=== PATIENT | female | born 1985 | race Caucasian/White ===

== ENCOUNTER 2016-09-27 22:53 | Emergency (ER) | payer OTHER ==
[2016-09-27 23:19] LABS: % IMMATURE GRANULYOCYTES 0.3 % (0.0-1.1); ABSOLUTE IMMATURE GRANULOCYTES 0.02 10^3/uL (0.00-0.10); ADD DIFF? NO; ADD MORPH? NO; ADD SCAN? NO; ATYPICAL LYMPHOCYTE FLAG 20 (0-99); FRAGMENT RBC FLAG 0 (0-99); HEMATOCRIT 39.2 % (38.0-47.0); HEMOGLOBIN 13.4 g/dL (12.6-16.3); LEFT SHIFT FLG 0 (0-99); LIPEMIA HEMOLYSIS FLAG 90 (0-99); MEAN CELL HEMOGLOBIN 33.3 pg (27.9-34.1); MEAN CELL HEMOGLOBIN CONCENTR. 34.2 g/dL (32.4-36.7); MEAN CELL VOLUME 97.3 fL (81.5-99.8); MEAN PLATELET VOLUME 10.2 fL (8.7-11.7); PLATELET CLUMPS FLAG 10 (0-99); PLATELET COUNT 191 10^3/uL (150-400); RED BLOOD CELL COUNT 4.03 10^6/uL (4.18-5.33)
--- NOTE | 2016-09-27 23:26 | EDPHY ---
H & P Stated Complaint: RLQ abd pain Time Seen by Provider: 09/27/16 23:05 HPI/ROS: Chief Complaint: Abdominal pain HPI: 31-year-old woman presenting with 2 days of right lower abdominal pain. Patient states that began Kyle night in her right lower abdomen. It is a moderate dull 4/10 pain. Is always in the same spot. Has not had any nausea, vomiting or diarrhea. No history of same. Does have a history of polycystic ovary disease but she has never had pain from this in the past. No fevers or chills. There are no aggravating or alleviating factors. Is not worsened with walking with bumps. Patient states that it feels like a general discomfort in her lower abdomen primary our and the right side. No surgeries in the past. No urinary for symptoms. Last menstrual. Was 1 month ago, she is normally irregular secondary to her PCOS. ROS: 10 point Review of Systems is negative except as noted in the HPI. PMH: PCOS Social History: No smoking, no alcohol, no recreational drug use Family History: non-contributory Physical Exam: Gen: Awake, Alert, No Distress HEENT: Nose: no rhinorrhea Eyes: PERRLA, EOMI Mouth: Moist mucosa Neck: Supple, no JVD Chest: nontender, lungs clear to auscultation Heart: S1, S2 normal, no murmur Abd: Soft, very mild right adnexal tenderness, no tenderness at McBurney's point , no guarding Back: no CVA tenderness, no midline tenderness Ext: no edema, non-tender Skin: no rash Neuro: CN II-XII intact, Sensation grossly intact, Strength 5/5 in bilateral upper and lower extremities - Personal History LMP (Females 10-55): 15-21 Days Ago Current Tetanus/Diphtheria Vaccine: Unsure Current Tetanus Diphtheria and Acellular Pertussis (TDAP): Unsure - Medical/Surgical History Hx Asthma: No Hx Chronic Respiratory Disease: No Hx Diabetes: No Hx Cardiac Disease: No Hx Renal Disease: No Hx Cirrhosis: No Hx Alcoholism: No Hx HIV/AIDS: No Hx Splenectomy or Spleen Trauma: No Other PMH: polycystic ovarian disease, - Social History Smoking Status: Current some day smoker Constitutional: Initial Vital Signs Temperature (C) 36.6 C 09/27/16 22:57 Heart Rate 74 09/27/16 22:57 Respiratory Rate 16 05/14/17 22:57 Blood Pressure 136/76 H 09/27/16 22:57 O2 Sat (%) 98 09/27/16 22:57 O2 Delivery Mode Room Air Allergies/Adverse Reactions: No Known Allergies Allergy (Unverified 09/27/16 22:57) Home Medications: Medication Instructions Recorded Xanax 09/27/16 Medical Decision Making - Diagnostics Imaging Results: Imaging Impressions Abdomen Ultrasound 09/27/16 23:25 Impression: Indeterminate study for appendicitis as a normal nor an abnormal appendix is visualized. Results called and discussed with Jem Longo MD at 09/28/2016 0:10. Pelvic/Renal Ultrasound 09/27/16 23:25 Impression: Normal pelvic ultrasound. Results called and discussed with Jem Longo MD at 09/28/2016 0:07. Imaging: Discussed imaging studies w/ call center professional Radiologist ED Course/Re-evaluation: Blood work is normal. She has no leukocytosis. Repeat examination has a soft completely benign abdomen with no reproducible tenderness whatsoever. I have discussed the fact that we are not able to see her appendix on ultrasound but there are no secondary findings suggestive of appendicitis. Her white count is normal. Patient states she is going to [facility] in 2 days. I have told her that is be concerning for her to have an appendicitis when [facility] in the only definitive way of determining this is a get a CT scan. Patient states she does not want a CT scan at this time. I have told her that if she has any pain or discomfort is not feeling entirely normal tomorrow that she should return for a CT scan to evaluate her appendix. She does not want to be in [facility] with a developing acute appendicitis. Patient states that she will certainly return if she is not feeling better or if she worsens. She assures me she will return if she is not feeling in her normal state of health. She understands the risks involved and the extreme changes of her having a surgical process when she is overseas. - Data Points Laboratory Results: Laboratory Results 09/27/16 23:10 09/27/16 23:10 09/27/16 09/27/16 09/27/16 23:10 23:10 23:10 WBC 7.67 10^3/uL 10^3/uL (3.80-9.50) RBC 4.03 10^6/uL L 10^6/uL (4.18-5.33) Hgb 13.4 g/dL g/dL (12.6-16.3) Hct 39.2 % % (38.0-47.0) MCV 97.3 fL fL (81.5-99.8) MCH 33.3 pg pg (27.9-34.1) MCHC 34.2 g/dL g/dL (32.4-36.7) RDW 12.0 % % (11.5-15.2) Plt Count 191 10^3/uL 10^3/uL (150-400) MPV 10.2 fL fL (8.7-11.7) Neut % (Auto) 49.6 % % (39.3-74.2) Lymph % (Auto) 42.6 % % (15.0-45.0) [place] % (Auto) 5.5 % % (4.5-13.0) Eos % (Auto) 1.3 % % (0.6-7.6) Baso % (Auto) 0.7 % % (0.3-1.7) Nucleat RBC Rel Count 0.0 % % (0.0-0.2) Absolute Neuts (auto) 3.81 10^3/uL 10^3/uL (1.70-6.50) Absolute Lymphs (auto) 3.27 10^3/uL H 10^3/uL (1.00-3.00) Absolute Monos (auto) 0.42 10^3/uL 10^3/uL (0.30-0.80) Absolute Eos (auto) 0.10 10^3/uL 10^3/uL (0.03-0.40) Absolute Basos (auto) 0.05 10^3/uL 10^3/uL (0.02-0.10) Absolute Nucleated RBC 0.00 10^3/uL 10^3/uL (0-0.01) Immature Gran % 0.3 % % (0.0-1.1) Immature Gran # 0.02 10^3/uL 10^3/uL (0.00-0.10) Sodium 139 mEq/L mEq/L (134-144) Potassium 3.7 mEq/L mEq/L (3.5-5.2) Chloride 96 mEq/L L mEq/L (97-110) Carbon Dioxide 28 mEq/l mEq/l (22-31) Anion Gap 15 mEq/L mEq/L (8-16) BUN 8 mg/dL mg/dL (7-23) Creatinine 0.8 mg/dL mg/dL (0.6-1.0) Estimated GFR > 60 Glucose 108 mg/dL H mg/dL (70-100) Calcium 10.2 mg/dL mg/dL (8.5-10.4) Beta HCG, Qual NEGATIVE Departure - Departure Disposition: Home, Routine, Self-Care Clinical Impression: Abdominal pain Condition: Good Instructions: Acute Abdominal Pain (ED) Additional Instructions: If your pain is not completely gone tomorrow return to the emergency department for re-evaluation and possible CT scan. Referrals: NONE *PRIMARY CARE P,. [Primary Care Provider] - As per Instructions Kristina Armenta MD [Medical Doctor] - As per Instructions
[2016-09-27 23:33] LABS: ANION GAP 15 mEq/L (8-16); CALCIUM 10.2 mg/dL (8.5-10.4); CARBON DIOXIDE 28 mEq/l (22-31); CHLORIDE 96 mEq/L (97-110); CREATININE 0.8 mg/dL (0.6-1.0); GLOMERULAR FILTRATION RATE > 60; GLUCOSE 108 mg/dL (70-100); POTASSIUM 3.7 mEq/L (3.5-5.2); SODIUM 139 mEq/L (134-144)
[2016-09-28 00:44] VITALS: BP 104/60; PULSE 58; RESP 14; TEMP 97.5; O2SAT 97
== END 2016-09-28 00:51 | disposition home or self-care (01) ==
DX: R10.31 Right lower quadrant pain (principal); F17.200 Nicotine dependence, unspecified, uncomplicated

== ENCOUNTER 2017-04-09 16:09 | Emergency (ER) | payer OTHER ==
[2017-04-09 16:25] VITALS: RESP 16
[2017-04-09] MEDS ORDERED: NS 1,000 ML IV ONE (16:36)
--- NOTE | 2017-04-09 16:36 | EDPHY ---
H & P Stated Complaint: Abdo pain starting while in [place], thinks she may have drunk contaminated Source: Patient Exam Limitations: No limitations - Personal History LMP (Females 10-55): 22-28 Days Ago Current Tetanus Diphtheria and Acellular Pertussis (TDAP): Yes - Medical/Surgical History Hx Asthma: No Hx Chronic Respiratory Disease: No Hx Diabetes: No Hx Cardiac Disease: No Hx Renal Disease: No Hx Cirrhosis: No Hx Alcoholism: No Hx HIV/AIDS: No Hx Splenectomy or Spleen Trauma: No Other PMH: polycystic ovarian disease, - Social History Smoking Status: Former smoker Time Seen by Provider: 04/09/17 16:36 HPI/ROS: HPI: This is a 32-year-old female who presents with Chief Complaint: Abdo pain starting while in [place], thinks she may have drunk contaminated Location: GI Quality: Crampy Duration: 6 days Signs and Symptoms: no fever, no nausea, no vomiting, no hematemesis, no blood in stool, + abdominal bloating, + diarrhea, no back pain, no urinary symptoms, no vaginal bleeding, no vaginal discharge, no indigestion, no chest pain, no shortness of breath Timing: Sudden Severity: [id number] Context: History polycystic ovarian syndrome presents with abdominal bloating and loose stools for 3-4 days while in [facility]. She drink tap or that she shot was filter but later found out that it was not within 12 hours started to experience abdominal cramping, abdominal bloating, and loose stools that lasted 3-4 days. She denies blood in her stool or hematemesis. She reports that she was feeling better for the last 5 days but then yesterday she started to experience abdominal cramping, abdominal bloating again. She denies actual pain and the cramps were generalized in nature. Last menstrual period was 3 weeks ago. Denies vaginal discharge, vaginal bleeding. No recent antibiotic use. Trying to drink fluids. Modifying Factors: Comment: ROS: see HPI Constitutional: No fever, no chills, no weight loss Eyes: No blurred vision Respiratory: No shortness of breath, no cough Cardiovascular: No chest pain, no palpitations Gastrointestinal: No nausea, no vomiting, no diarrhea, no hematemesis, no blood in stool Genitourinary: No dysuria, no blood in urine Extremities: No myalgias, no edema Neurologic: No weakness, no numbness Skin: No rashes, no petechiae Hematologic: No bruising, no bleeding MEDICAL/SURGICAL/SOCIAL HISTORY: Medical history: Polycystic ovarian syndrome Surgical history: Denies Social history: Employed CONSTITUTIONAL: Extremely well-appearing, nontoxic in appearance adult female, awake and alert, no obvious distress HEENT: Atraumatic and normocephalic, PERRL, EOMI. Tympanic membranes clear. Oropharynx clear, no exudate and moist pink mucosa. Airway patent. No lymphadenopathy. No meningismus. Cardiovascular: Normal S1/S2, regular rate, regular rhythm, without murmur rub or gallop. PULMONARY/CHEST: Symmetrical and nontender. Clear to auscultation bilaterally. Good air movement. No accessory muscle usage. ABDOMEN: Soft, nondistended, nontender, no rebound, no guarding, no peritoneal signs, no masses or organomegaly. No CVAT. EXTREMITIES: 2/2 pulses, strength 5/5, no deformities, no clubbing, no cyanosis or edema. NEUROLOGICAL: no focal neuro deficits. GCS 15. SKIN: Warm and dry, no erythema. no rash. Good capillary refill. (Sara Montgomery) Constitutional: Initial Vital Signs Temperature (C) 37 C 04/09/17 16:21 Heart Rate 59 L 04/09/17 16:21 Respiratory Rate 16 04/09/17 16:21 Blood Pressure 111/57 L 04/09/17 16:21 O2 Sat (%) 96 04/09/17 16:21 O2 Delivery Mode Room Air Allergies/Adverse Reactions: No Known Allergies Allergy (Unverified 09/27/16 22:57) Home Medications: Medication Instructions Recorded NK [No Known Home Meds] 04/09/17 Medical Decision Making ED Course/Re-evaluation: Labs, urinalysis, IV fluids, oral medications, stool studies ordered Afebrile and no systemic signs Abdominal exam is benign. Patient politely refuses any abdominal imaging "if not needed." suspect traveler's diarrhea. 1700: End fo Shift. Signed out to Dr. Garcia pending workup and disposition. (Sara Montgomery) Differential Diagnosis: Differential diagnosis includes is not limited to infectious colitis, travels diarrhea, gastroenteritis, electrolyte imbalance, dehydration. (Sara Montgomery) Other Provider: I evaluated and participated in the management of the patient. I also evaluated the patient independently. My co-signature indicates that I have reviewed this chart and I agree with the findings and plan of care as documented. My personal H&P findings include: The patient presents to the ED with a 10 day history of migratory abdominal pain. The patient is concerned about the possibility of a parasitic infection given recent travel to [place]. The patient denies any history of diarrhea, hematemesis or melena. Physical exam General Appearance: Alert, no distress Eyes: Pupils equal and round no pallor or injection ENT, Mouth: Mucous membranes moist Respiratory: There are no retractions, lungs are clear to auscultation Cardiovascular: Regular rate and rhythm Gastrointestinal: Minimal epigastric tenderness, normal bowel sounds, no peritoneal signs Neurological: A&O, normal motor function, normal sensory exam, normal cranial nerves Skin: Warm and dry, no rashes Musculoskeletal: Neck is supple nontender Extremities: symmetrical, full range of motion ED course I reviewed the patient's laboratory studies. She does have a slight transaminitis. A right upper quadrant ultrasound was ordered for further evaluation of this finding. Right upper quadrant ultrasound demonstrates no acute findings. The patient's GI PCR study is negative. At this point time I do not feel that she needs a CT scan of her abdomen pelvis. The patient has been informed of her slightly elevated liver enzymes in need to follow up with Gastroenterology. (Bobby Garcia) - Data Points Laboratory Results: Laboratory Results 04/09/17 16:54 04/09/17 16:54 04/09/17 04/09/17 04/09/17 17:52 16:54 16:54 WBC RBC Hgb Hct MCV MCH MCHC RDW Plt Count MPV Neut % (Auto) Lymph % (Auto) [place] % (Auto) Eos % (Auto) Baso % (Auto) Nucleat RBC Rel Count Absolute Neuts (auto) Absolute Lymphs (auto) Absolute Monos (auto) Absolute Eos (auto) Absolute Basos (auto) Absolute Nucleated RBC Immature Gran % Immature Gran # Sodium 142 mEq/L mEq/L (134-144) Potassium 4.3 mEq/L mEq/L (3.5-5.2) Chloride 101 mEq/L mEq/L (97-110) Carbon Dioxide 27 mEq/l mEq/l (22-31) Anion Gap 14 mEq/L mEq/L (8-16) BUN 16 mg/dL mg/dL (7-23) Creatinine 1.2 mg/dL H mg/dL (0.6-1.0) Estimated GFR 52 Glucose 80 mg/dL mg/dL (70-100) Calcium 9.7 mg/dL mg/dL (8.5-10.4) Total Bilirubin 0.2 mg/dL mg/dL (0.1-1.4) Conjugated Bilirubin 0.0 mg/dL mg/dL (0.0-0.5) Unconjugated Bilirubin 0.2 mg/dL mg/dL (0.0-1.1) AST 49 IU/L H IU/L (14-46) ALT 86 IU/L H IU/L (9-52) Alkaline Phosphatase 60 IU/L IU/L (38-126) Total Protein 7.3 g/dL g/dL (6.3-8.2) Albumin 4.6 g/dL g/dL (3.5-5.0) Lipase 104 IU/L IU/L (23-300) Beta HCG, Qual NEGATIVE Urine Color COLORLESS Urine Appearance CLEAR Urine pH 7.0 (5.0-7.5) Ur Specific [place] 1.003 (1.002-1.030) Urine Protein NEGATIVE (NEGATIVE) Urine Ketones NEGATIVE (NEGATIVE) Urine Blood NEGATIVE (NEGATIVE) Urine Nitrate NEGATIVE (NEGATIVE) Urine Bilirubin NEGATIVE (NEGATIVE) Urine Urobilinogen NEGATIVE EU EU (0.2-1.0) Ur Leukocyte Esterase NEGATIVE (NEGATIVE) Urine Glucose NEGATIVE (NEGATIVE) Stool Occult Bld Scrn 04/09/17 04/09/17 16:54 16:31 WBC 6.10 10^3/uL 10^3/uL (3.80-9.50) RBC 3.45 10^6/uL L 10^6/uL (4.18-5.33) Hgb 11.9 g/dL L g/dL (12.6-16.3) Hct 34.0 % L % (38.0-47.0) MCV 98.6 fL fL (81.5-99.8) MCH 34.5 pg H pg (27.9-34.1) MCHC 35.0 g/dL g/dL (32.4-36.7) RDW 11.5 % % (11.5-15.2) Plt Count 190 10^3/uL 10^3/uL (150-400) MPV 9.9 fL fL (8.7-11.7) Neut % (Auto) 39.4 % % (39.3-74.2) Lymph % (Auto) 51.6 % H % (15.0-45.0) [place] % (Auto) 5.9 % % (4.5-13.0) Eos % (Auto) 2.1 % % (0.6-7.6) Baso % (Auto) 0.8 % % (0.3-1.7) Nucleat RBC Rel Count 0.0 % % (0.0-0.2) Absolute Neuts (auto) 2.40 10^3/uL 10^3/uL (1.70-6.50) Absolute Lymphs (auto) 3.15 10^3/uL H 10^3/uL (1.00-3.00) Absolute Monos (auto) 0.36 10^3/uL 10^3/uL (0.30-0.80) Absolute Eos (auto) 0.13 10^3/uL 10^3/uL (0.03-0.40) Absolute Basos (auto) 0.05 10^3/uL 10^3/uL (0.02-0.10) Absolute Nucleated RBC 0.00 10^3/uL 10^3/uL (0-0.01) Immature Gran % 0.2 % % (0.0-1.1) Immature Gran # 0.01 10^3/uL 10^3/uL (0.00-0.10) Sodium Potassium Chloride Carbon Dioxide Anion Gap BUN Creatinine Estimated GFR Glucose Calcium Total Bilirubin Conjugated Bilirubin Unconjugated Bilirubin AST ALT Alkaline Phosphatase Total Protein Albumin Lipase Beta HCG, Qual Urine Color Urine Appearance Urine pH Ur Specific [place] Urine Protein Urine Ketones Urine Blood Urine Nitrate Urine Bilirubin Urine Urobilinogen Ur Leukocyte Esterase Urine Glucose Stool Occult Bld Scrn NEGATIVE (NEGATIVE) Microbiology Results: MICROBIOLOGY 04/09/17 16:31 Stool Gastrointestinal Tract Panel (PCR) - Final No Organism Detected Medications Given: Discontinued Medications Sodium Chloride (Ns) 1,000 mls @ 0 mls/hr IV EDNOW ONE; Wide Open PRN Reason: Protocol Stop: 04/09/17 16:37 Last Admin: 04/09/17 16:57 Dose: 1,000 mls Departure - Departure Disposition: Home, Routine, Self-Care Clinical Impression: Abdominal pain Condition: Good Instructions: Acute Abdominal Pain (ED) Additional Instructions: Sometimes we are unable to diagnose an obvious cause of abdominal pain in the Emergency Department. Based upon our evaluation today, I believe you most likely are having a viral gastroenteritis. Because more serious conditions can be difficult to diagnose early in the course of their presentation, we ask that you return to the Emergency Department in 8-12 hours for a recheck if you are still having pain. This is necessary to exclude the development of a more serious condition such as appendicitis or other intra-abdominal emergency. In the event your pain markedly increases before that time or you develop intractable vomiting or fever return to the Emergency Department immediately. Additionally, you had a slight elevation of your liver function test which may be a consequence of a mild viral syndrome. I do recommend following up with our warehouse driver for a recheck of these laboratory studies in the next several weeks in for further evaluation of any ongoing abdominal pain. You have been provided the number of our on-call warehouse driver Dr. Thomas Referrals: Darrion Thomas MD [Medical Doctor] - As per Instructions
[2017-04-09 17:06] LABS: % IMMATURE GRANULYOCYTES 0.2 % (0.0-1.1); ABSOLUTE IMMATURE GRANULOCYTES 0.01 10^3/uL (0.00-0.10); ADD DIFF? NO; ADD MORPH? NO; ADD SCAN? NO; ATYPICAL LYMPHOCYTE FLAG 50 (0-99); FRAGMENT RBC FLAG 0 (0-99); HEMOGLOBIN 11.9 g/dL (12.6-16.3); LEFT SHIFT FLG 0 (0-99); LIPEMIA HEMOLYSIS FLAG 90 (0-99); MEAN CELL HEMOGLOBIN 34.5 pg (27.9-34.1); MEAN CELL VOLUME 98.6 fL (81.5-99.8); MEAN PLATELET VOLUME 9.9 fL (8.7-11.7); PLATELET CLUMPS FLAG 0 (0-99); PLATELET COUNT 190 10^3/uL (150-400); RED BLOOD CELL COUNT 3.45 10^6/uL (4.18-5.33); RED CELL DISTRIBUTION WIDTH 11.5 % (11.5-15.2)
[2017-04-09 17:23] LABS: ALANINE AMINOTRANSFERASE 86 IU/L (9-52); ALBUMIN 4.6 g/dL (3.5-5.0); ALKALINE PHOSPHATASE 60 IU/L (38-126); ANION GAP 14 mEq/L (8-16); ASPARTATE AMINOTRANSFERASE 49 IU/L (14-46); BILIRUBIN,TOTAL 0.2 mg/dL (0.1-1.4); BILIRUBIN-UNCONJUGATED 0.2 mg/dL (0.0-1.1); CALCIUM 9.7 mg/dL (8.5-10.4); CARBON DIOXIDE 27 mEq/l (22-31); CHLORIDE 101 mEq/L (97-110); CREATININE 1.2 mg/dL (0.6-1.0); GLOMERULAR FILTRATION RATE 52; GLUCOSE 80 mg/dL (70-100); POTASSIUM 4.3 mEq/L (3.5-5.2); SODIUM 142 mEq/L (134-144); TOTAL PROTEIN 7.3 g/dL (6.3-8.2)
[2017-04-09 18:04] LABS: COLOR COLORLESS; LEUKOCYTE ESTERASE,URINE NEGATIVE (NEGATIVE); NITRITE,URINE NEGATIVE (NEGATIVE)
[2017-04-09 20:29] VITALS: BP 108/67; PULSE 57; TEMP 97.9; O2SAT 98
== END 2017-04-09 20:29 | disposition home or self-care (01) ==
DX: R10.9 Unspecified abdominal pain (principal); E86.9 Volume depletion, unspecified; Z87.891 Personal history of nicotine dependence

== ENCOUNTER 2017-04-26 10:27 | Emergency (ER) | payer OTHER ==
[2017-04-26 10:43] VITALS: BP 116/85; PULSE 66; RESP 16; TEMP 96.8; O2SAT 100
--- NOTE | 2017-04-26 11:00 | EDPHY ---
General Narrative: CHIEF COMPLAINT: Knee pain with injury HISTORY OF PRESENT ILLNESS: Patient complains of right knee pain. This started 8 days ago. She was bending down in a squatted position. She said she twisted and felt a pop in the right knee. The pain is over the lateral and medial joint line. Her tenderness is severe. Worse with palpation movement. Does not radiate. No numbness or tingling. No trauma to the hip or ankle. She contacted the orthopedic urgent care and they instructed her to come to the emergency department for MRI. Her expectation is that she will receive an MRI today. She has no injury elsewhere. No previous evaluation for this knee pain, but she does have chronic knee pain in this same knee with no definitive diagnosis. ESTABLISHED ORTHOPEDIST: None. Sees a chiropractor. Contacted Dr. Nina's office today REVIEW OF SYSTEMS: Ten systems reviewed and are negative unless otherwise noted in the HPI PAST MEDICAL HISTORY: Knee pain SOCIAL HISTORY: Nonsmoker. FAMILY HISTORY: Noncontributory EXAMINATION General Appearance: Alert, no distress Cardiovascular: Symmetric PT and DP pulses 2+. Regular rate. Neurological: A&O, sensory of the lower extremities symmetric. Strength is symmetric in the knees hips, knees and ankles. Skin: Warm and dry, no rash. No petechiae purpura Extremities: Tenderness of the right over the medial lateral joint lines. No effusion. No crepitus. No instability. Negative Anthony. Negative drawer test. Psychiatric: Mood and affect normal DIFFERENTIAL DIAGNOSES: Including but not limited to mcl sprain, medial meniscal injury, PCL injury, ACL injury, fracture, loose body MDM: 10:50 a.m. Right knee pain of 8 days duration. She is in no acute distress. Knee is stable without any signs of infection or effusion. Neurovascular intact distally. I did offer an x-ray of the knee but she has declined. The patient came here with expectation of an MRI. We had a lengthy discussion regarding this. I do not feel she warrants an emergent MRI at this time. I do feel she should follow up with orthopedist. She has an appointment today at 11:30 a.m.. She will keep that appointment with Dr. Nina's office. We discussed ED precautions. Short course of pain medication. She is comfortable this plan and arch home stable condition. SUPERVISION: This patient was independently evaluated without direct involvement of or examination by the attending physician. ED Precautions: Worsening pain. Erythema, edema, cyanosis, pallor, paresthesia or anesthesia. - History Smoking Status: Former smoker - Objective Vital Signs: Initial Vital Signs Temperature (C) 96.8 F 04/26/17 10:30 Heart Rate 66 04/26/17 10:30 Respiratory Rate 16 04/26/17 10:30 Blood Pressure 116/85 H 04/26/17 10:30 O2 Sat (%) 100 04/26/17 10:30 O2 Delivery Mode Room Air Allergies/Adverse Reactions: No Known Allergies Allergy (Verified 04/26/17 10:38) Home Medications: Medication Instructions Recorded Acetaminophen/Codeine 300/30Mg 1 each PO Q6 PRN #11 tab 04/26/17 [Tylenol #3 (*)] Departure - Departure Disposition: Home, Routine, Self-Care Clinical Impression: Knee MCL sprain Qualifiers: Encounter type: initial encounter Laterality: right Qualified Code(s): S83.411A - Sprain of medial collateral ligament of right knee, initial encounter Condition: Good Instructions: Knee Sprain (ED) Additional Instructions: 1. Follow up with orthopedist as you have already scheduled 2. ED precautions as discussed Referrals: Jose Nina MD [Medical Doctor] - As per Instructions Prescriptions: Acetaminophen/Codeine 300/30Mg [Tylenol #3 (*)] 1 each PO Q6 PRN #11 tab PRN Reason: Pain, Mild
== END 2017-04-26 11:04 | disposition home or self-care (01) ==
DX: S83.411A Sprain of medial collateral ligament of right knee, initial encounter (principal); Z87.891 Personal history of nicotine dependence; X58.XXXA Exposure to other specified factors, initial encounter; Y99.8 Other external cause status; Y93.89 Activity, other specified